=== PATIENT | female | born 1990 | race Caucasian/White ===

== ENCOUNTER 2022-02-20 08:23 | Outpatient (CLI) | payer BC | END 2022-02-20 08:24 | disposition home or self-care (01) | LOC: CSHLAB 08:23 | PROVIDERS: ATTEND Student in an Organized Health Care Education/Training Program | DX: Z01.812 Encounter for preprocedural laboratory examination (principal); Z20.822 Contact with and (suspected) exposure to COVID-19 | CPT/HCPCS: 85027; 86780; 86850; 86900; 86901; 87340; U0003; U0005 ==

== ENCOUNTER 2022-02-21 07:30 | Inpatient (IN) | payer OTHER, MEDICAID ==
[2022-02-20 13:03] LABS: Hemoglobin 10.7 g/dL (12.0-15.5); Mean Corpuscular HGB CONC 30.9 g/dL (32.0-36.0); Mean Corpuscular Hemoglobin 20.3 pg (27.0-33.0); Mean Corpuscular Volume 65.5 fl (81.6-98.3); Platelet Count 233 10x3/uL (150-450); RBC Distribution Width 15.7 % (11.5-14.5); Red Blood Cell (RBC) Count 5.28 10x6/uL (3.90-5.03); White Blood Cell (WBC) Count 6.9 10x3/uL (3.5-10.5)
[2022-02-20 13:13] LABS: Hep B Surf Ag Non-Reactive S/CO (NonReactive); Syphilis Antibody Nonreactive (Nonreactive); Syphilis Antibody Index 0.04 S/CO (<1.00 Non-Reactive)
[2022-02-20 13:36] LABS: HBSAg Index 0.23 S/CO (0-0.99)
[2022-02-21] MEDS ORDERED: Bicitra 30 ML UDCUP PO PRN (10:44)
[2022-02-21] MEDS ORDERED: Lactated Ringer's 1,000 ML IV SCH (10:44)
[2022-02-21] MEDS ORDERED: hydrALAZINE 20 MG/ML VIAL SLOW IVP PRN ×2 (10:44→21:09)
[2022-02-21] MEDS ORDERED: Famotidine/PF 20 mg/2ml Vial SLOW IVP PRN (10:44)
[2022-02-21] MEDS ORDERED: CEFAZOLIN 2 GM in Sodium Chloride 0.9% 100 ML IVPB SCH (10:44)
[2022-02-21] MEDS ORDERED: Promethazine HCl 25 MG/ML VIAL IM PRN ×3 (10:44→21:09)
[2022-02-21] MEDS ORDERED: Ondansetron PF 4 MG/2 ML Vial IVP PRN ×3 (10:44→21:09)
[2022-02-21 11:41] VITALS: BMI 29.8
[2022-02-21] MEDS ORDERED: Morphine PF 10 MG/10 ML VIAL ONE (15:08)
[2022-02-21] MEDS ORDERED: Phenylephrine 40 MG/NS 250 ML 0 ML ONE (15:08)
[2022-02-21] MEDS ORDERED: PHENYLEPHRINE-NS 100 MCG/ML 10 ML SYRINGE ONE (15:08)
[2022-02-21] MEDS ORDERED: Dexamethasone 4 mg/ml Vial ONE (15:08)
[2022-02-21] MEDS ORDERED: Ondansetron PF 4 MG/2 ML Vial ONE (15:08)
[2022-02-21] MEDS ORDERED: Oxytocin 10 UNITS/ML VIAL ONE (15:08)
[2022-02-21] MEDS ORDERED: Famotidine/PF 20 mg/2ml Vial ONE (15:18)
[2022-02-21] MEDS ORDERED: ePHEDrine Sulfate 50 MG/10 ML VIAL ONE (17:18)
[2022-02-21] MEDS ORDERED: Ketorolac Tromethamine 30 MG/ML VIAL ONE (17:19)
[2022-02-21] MEDS ORDERED: Meperidine HCl/PF 25 MG/ML VIAL SLOW IVP PRN (17:37)
[2022-02-21] MEDS ORDERED: Moisturizing Cream (Eucerin) 113 GM JAR TOP PRN (17:37)
[2022-02-21] MEDS ORDERED: Naloxone HCl 0.4 mg/ml Vial IV PRN (17:37)
[2022-02-21] MEDS ORDERED: Naloxone HCl 0.4 mg/ml Vial IVP PRN ×2 (17:37)
[2022-02-21] MEDS ORDERED: Promethazine HCl 25 MG SUPP PR PRN (17:37)
[2022-02-21] MEDS ORDERED: Fentanyl 100 MCG/2 ML VIAL SLOW IVP PRN (17:37)
[2022-02-21] MEDS ORDERED: Ketorolac Tromethamine 30 MG/ML VIAL IVP PRN (17:37)
[2022-02-21] MEDS ORDERED: Ondansetron HCl/PF 4 MG/2 ML Vial IVP PRN (17:37)
[2022-02-21] MEDS ORDERED: L&D-Morphine 4 MG/ML VIAL SLOW IVP PRN (17:37)
[2022-02-21] MEDS ORDERED: diphenhydrAMINE 50 MG/ML VIAL IVP PRN (17:37)
[2022-02-21] MEDS ORDERED: Ketorolac Tromethamine 30 MG/ML VIAL IVP SCH (17:45)
[2022-02-21] MEDS ORDERED: Communication Order-Pharmacy FS SCH (17:45)
[2022-02-21] MEDS ORDERED: Bisacodyl 10 MG SUPP PR PRN (21:09)
[2022-02-21] MEDS ORDERED: diphenhydrAMINE 25 MG CAP PO PRN (21:09)
[2022-02-21] MEDS ORDERED: Boostrix 0.5 ML (Tdap) VIAL IM ONE (21:09)
[2022-02-21] MEDS ORDERED: Lanolin Ointment 7 GM TUBE TOP PRN (21:09)
[2022-02-21] MEDS ORDERED: Ferrous Sulfate 325 MG TAB PO SCH (21:45)
[2022-02-21] MEDS ORDERED: Docusate 100 MG CAP PO SCH (21:45)
[2022-02-22 06:54] LABS: Hemoglobin 9.5 g/dL (12.0-15.5); Mean Corpuscular HGB CONC 32.4 g/dL (32.0-36.0); Mean Corpuscular Hemoglobin 20.7 pg (27.0-33.0); RBC Distribution Width 15.8 % (11.5-14.5); Red Blood Cell (RBC) Count 4.58 10x6/uL (3.90-5.03); White Blood Cell (WBC) Count 12.6 10x3/uL (3.5-10.5)
[2022-02-22 07:05] LABS: Platelet Count 207 10x3/uL (150-450)
[2022-02-22] MEDS: Prenatal Vitamin 1 TAB PO SCH (08:44)
[2022-02-22] MEDS: Docusate 100 MG CAP PO SCH ×2 (08:45→21:19)
[2022-02-22] MEDS: Ferrous Sulfate 325 MG TAB PO SCH ×2 (08:46→21:21)
[2022-02-22] MEDS: HYDROcodone/Acetaminophen 5/325 mg Tablet PO PRN ×4 (08:46→23:59)
[2022-02-22] MEDS: Ibuprofen 800 MG TAB PO SCH ×2 (13:42→21:21)
[2022-02-22] MEDS: Simethicone Chewable 80 MG TAB PO PRN (21:21)
[2022-02-23] MEDS: Ibuprofen 800 MG TAB PO SCH ×3 (05:15→21:40)
[2022-02-23] MEDS: HYDROcodone/Acetaminophen 5/325 mg Tablet PO PRN ×4 (05:15→20:42)
[2022-02-23] MEDS: Simethicone Chewable 80 MG TAB PO PRN (05:16)
[2022-02-23] MEDS: Docusate 100 MG CAP PO SCH ×2 (07:34→20:42)
[2022-02-23] MEDS: Ferrous Sulfate 325 MG TAB PO SCH ×2 (07:34→21:40)
[2022-02-23] MEDS: Prenatal Vitamin 1 TAB PO SCH (07:34)
[2022-02-24] MEDS: HYDROcodone/Acetaminophen 5/325 mg Tablet PO PRN ×2 (01:59→08:27)
[2022-02-24] MEDS: Ibuprofen 800 MG TAB PO SCH (05:27)
[2022-02-24 07:51] VITALS: BP 113/53; TEMP 97.7
[2022-02-24] MEDS: Prenatal Vitamin 1 TAB PO SCH (08:26)
[2022-02-24] MEDS: Docusate 100 MG CAP PO SCH (08:26)
[2022-02-24] MEDS: Ferrous Sulfate 325 MG TAB PO SCH (08:27)
== END 2022-02-24 13:05 | disposition home or self-care (01) | DRG 788 ==
LOC: CSHLD 10:25 → CSHPP 18:52
PROVIDERS: ADMIT Student in an Organized Health Care Education/Training Program; ATTEND Student in an Organized Health Care Education/Training Program
PROC: 10D00Z1 Extraction of Products of Conception, Low, Open Approach (ICD-10-PCS; principal; 2022-02-21)
DX: O34.211 Maternal care for low transverse scar from previous cesarean delivery (principal); Z20.822 Contact with and (suspected) exposure to COVID-19; Z3A.39 39 weeks gestation of pregnancy; Z37.0 Single live birth; D56.3 Thalassemia minor; O34.13 Maternal care for benign tumor of corpus uteri, third trimester; D25.2 Subserosal leiomyoma of uterus; D50.0 Iron deficiency anemia secondary to blood loss (chronic); O90.81 Anemia of the puerperium
CPT/HCPCS: 36415; 51702; 85027; 86780; 86850; 86900; 86901; 87340; J1100; J1885; J2274; J2405; J2590; J7120; S0028; U0003; U0005